=== PATIENT | male | born 1960 | race Caucasian/White ===

== ENCOUNTER 2017-10-05 09:50 | Day surgery (SDC) | payer OTHER, BC ==
[2017-10-05] MEDS ORDERED: PROPOFOL 10 MG/ML VIAL IV ONE (09:51)
[2017-10-05] MEDS ORDERED: LIDOCAINE 2% MDV (20MG/ML) 20ML VIAL IV ONE (09:51)
--- NOTE | 2017-10-05 13:50 | Operative Note ---
DATE OF SURGERY: 10/05/2017 OPERATION: ESOPHAGOGASTRODUODENOSCOPY with biopsy. PREOPERATIVE DIAGNOSIS: Globus sensation. POSTOPERATIVE DIAGNOSIS: Irregular GE junction with associated erythema, rule out short-segment Sommer's. PROCEDURE: After informed consent was obtained from the patient, he was placed in the left lateral decubitus position in the endoscopy suite, sedated and monitored by the department of anesthesia. Once sedated, a well-lubricated [id number] gastroscope was placed in the posterior oropharynx and under direct visualization passed to the proximal esophagus. The endoscope was advanced through the proximal, mid, and distal esophagus. The GE junction was irregular with associated erythema. The remainder of the esophagus appeared nl. There was no hiatal hernia noted. The subdiaphragmatic stomach including the gastric body, antrum, pylorus, duodenal bulb, and sweep were unremarkable. J-turn views of the proximal stomach were unremarkable. The endoscope was straightened. The GE junction was biopsied. No excessive bleeding was noted. The endoscope was then removed from the patient with no new findings noted. RECOMMENDATIONS: I would like the patient to start a proton pump inhibitor on a daily basis to see if this resolves his situation, as he does have inflammatory changes consistent with GERD which may also be related to his globus sensation. As always, thank you for allowing me to participate in the healthcare of your patients. CC: LEILANI Boss
== END 2017-10-05 12:44 | disposition home or self-care (01) ==
LOC: HOP 09:50
PROVIDERS: ATTEND Internal Medicine Gastroenterology
DX: F45.8 Other somatoform disorders (principal); K31.89 Other diseases of stomach and duodenum; K21.0 Gastro-esophageal reflux disease with esophagitis